=== PATIENT | male | born 1940 | race Caucasian/White ===

== ENCOUNTER 2017-11-26 18:58 | Emergency (ER) | payer MEDICARE ==
[~2017-11-26] VITALS: Ht 177.8 cm; Wt 29.5 kg
[~2017-11-26 18:58] MED LIST: ACETAMIN325 MG PO; ASPIRIN EC325 MG PO; BACTROBAN2 %; BENADRYL25 M2 PO; CARAFATE1 GM PO; CIPROFLOXACN500 MG PO; CLONIDINE0.3 MG PO; DOCUSATE SOD100 M1 PO; DOCUSATE SODIUM/SENN OR; ENOXAPARIN40 MG/0.1 SC; EX-LAX PO; FISH OIL1000 MG PO; FLEXERIL PO; FLEXERIL10 MG PO; FLUARIX QUADRIV1 INJ IM; FLULAVAL IM; GLIPIZIDE10 MG PO; GLIPIZIDE5 M1 PO; GLIPIZIDE5 M2 PO; GLUCOPHAGE500 MG PO; GLUCOS/CHOND1 CA1 PO; GLUCOSAMINE1000 M1 OR; GLUCOTROL5 MG PO; GLYCERIN RE; HUMULIN 70/30 SC; HUMULIN R1 M1 SC; LANTUS SOLOSTAR SC; LISINOPRIL10 MG PO; LORTAB 10-325 M1 TAB PO; LORTAB 5 PO; LOVENOX 4040 MG/0.4 SC; LOVENOX SC; MELOXICAM15 MG PO; METFORMIN500 M2 PO; METFORMIN500 MG PO; METOPROL TAR25 MG PO; MILK OF MAG30 ML/UDC PO; MIRALAX3350 N1 PO; MULTIVITAL PO; MULTIVITAM10 OR; MULTIVITAMIN OR; NAPROSYN500 MG PO; NEXIUM40 MG PO; NOVOLIN 70/30 SC; NUCYNTA50 MG OR; ONDANSETRON4 MG PO; OXYCONTIN10 MG PO; PERCOCET 5/325M1 TAB PO; PHENERGAN25 MG/TAB PO; PRAVASTATIN20 MG PO; PREVACID30 M2 PO; PRILOSEC OTC20 MG PO; PROMETHAZINE HC25 MG PO; ROCEPHIN 1 GM1 G1 IV; RYBIX ODT50 MG PO; SIMVASTATIN20 MG PO; SUCRALFATE1 GM PO; TERAZOSIN2 MG PO; TRAMADOL HCL50 MG PO; TUCKS RE; ULTRAM50 M1 PO; ULTRAM50 MG OR; VOLTAREN1 % TOP; ZESTRIL/PRI10 MG/TAB PO; ZOCOR20 MG PO; [UNRECOGNIZED DRUG - OTHER] OR
[2017-11-26 20:23] LABS: URINE BILIRUBIN - DIPSTICK NEGATIVE (NEGATIVE); URINE BLOOD DIPSTICK NEGATIVE (NEGATIVE); URINE COLOR YELLOW; URINE GLUCOSE - DIPSTICK NEGATIVE (NEGATIVE); URINE KETONE NEGATIVE (NEGATIVE); URINE LEUK ESTERASE NEGATIVE (NEGATIVE); URINE NITRITE - DIPSTICK NEGATIVE (Negative); URINE PROTEIN - DIPSTICK NEGATIVE (NEG-TRACE); URINE UROBILINOGEN - DIPSTICK 0.2 E.U./dL (0.2)
[2017-11-26 20:26] LABS: URINE CLARITY CLEAR
[2017-11-26 20:26] LABS: HEMATOCRIT 50.7 % (39.0-50.0); HEMOGLOBIN 17.8 g/dl (14.0-18.0); IMMATURE GRANULOCYTES 0.3 % (0.0-1.0); MEAN CELL VOLUME 88.9 fL CALC (80.0-100.0); MEAN CORPUSCULAR HGB 31.2 pG CALC (26.0-32.0); MEAN CORPUSCULAR HGB CONC 35.1 g/L CALC (32.0-36.0); NEUT# 3.17 thou/uL (1.82-7.42); RED BLOOD COUNT 5.7 mill/uL (4.70-6.10)
[2017-11-26 20:43] LABS: ALBUMIN 4.8 g/dL (3.2-5.0); BILIRUBIN, TOTAL 0.7 mg/dL (0.0-1.4); CALCIUM 10.3 mg/dL (8.4-10.2); CREATININE 1.8 mg/dL (0.7-1.3); POTASSIUM 4.9 mmol/l (3.5-5.1); TOTAL PROTEIN 7.6 g/dL (6.3-8.2)
[2017-11-27] MEDS ORDERED: FLEXERIL PO (01:45)
[2017-11-27] MEDS ORDERED: ULTRAM50 M1 PO (01:45)
[2017-11-27 02:44] VITALS: BP 148/79
== END 2017-11-27 02:44 | disposition home or self-care (01) ==
LOC: ED 18:58
PROVIDERS: Emergency Medicine
DX: N20.0 Calculus of kidney (principal); I10 Essential (primary) hypertension; I25.10 Atherosclerotic heart disease of native coronary artery without angina pectoris; E11.9 Type 2 diabetes mellitus without complications; Z87.442 Personal history of urinary calculi

== ENCOUNTER 2018-04-05 17:56 | Emergency (ER) | payer MEDICARE ==
[~2018-04-05] VITALS: Ht 177.8 cm; Wt 72.3 kg
[2018-04-05 18:25] LABS: HEMATOCRIT 49.7 % (39.0-50.0); HEMOGLOBIN 17.8 g/dl (14.0-18.0); IMMATURE GRANULOCYTES 0.3 % (0.0-1.0); MEAN CORPUSCULAR HGB 31.2 pG CALC (26.0-32.0); MEAN CORPUSCULAR HGB CONC 35.8 g/L CALC (32.0-36.0); NEUT# 3.53 thou/uL (1.82-7.42); RED BLOOD COUNT 5.71 mill/uL (4.70-6.10); RED CELL DISTRI WIDTH 12.7 % (11.5-15.5)
[2018-04-05 18:42] LABS: PROTHROMBIN TIME 10.6 SECONDS (9.0-12.5)
[2018-04-05 18:43] LABS: ALBUMIN 4.6 g/dL (3.2-5.0); ALKALINE PHOSPHATASE 65 u/l (38-126); ANION GAP 19 (6-22 (CALC)); BUN 26 mg/dL (8-23); BUN/CREATININE RATIO 21 (12-20 (CALC)); CARBON DIOXIDE 24 mmol/l (22-30); CHLORIDE 102 mmol/l (95-108); CREATININE 1.2 mg/dL (0.7-1.3); GFR 59 ML/MIN (>=60 (CALC)); GFR FOR AFR.AMER. > 60 ML/MIN (>=60 (CALC)); POTASSIUM 4.9 mmol/l (3.5-5.1); SGOT/AST 49 u/l (19-48); SGPT/ALT 48 u/l (11-66); SODIUM 140 mmol/l (137-146); TOTAL PROTEIN 8.3 g/dL (6.3-8.2)
[2018-04-05 21:34] LABS: URINE BILIRUBIN - DIPSTICK NEGATIVE (NEGATIVE); URINE BLOOD DIPSTICK NEGATIVE (NEGATIVE); URINE COLOR YELLOW; URINE GLUCOSE - DIPSTICK NEGATIVE (NEGATIVE); URINE KETONE NEGATIVE (NEGATIVE); URINE LEUK ESTERASE NEGATIVE (NEGATIVE); URINE NITRITE - DIPSTICK NEGATIVE (Negative); URINE PH 6.5 (4.5-8.0); URINE PROTEIN - DIPSTICK NEGATIVE (NEG-TRACE); URINE SPECIFIC GRAVITY <=1.005
[2018-04-05 21:36] LABS: URINE CLARITY CLEAR
[2018-04-05 22:20] VITALS: BP 118/71
== END 2018-04-05 22:20 | disposition home or self-care (01) ==
LOC: ED 17:56
PROVIDERS: Emergency Medicine
DX: I20.9 Angina pectoris, unspecified (principal); R55 Syncope and collapse; I10 Essential (primary) hypertension; E11.9 Type 2 diabetes mellitus without complications; Z79.4 Long term (current) use of insulin; Z86.73 Personal history of transient ischemic attack (TIA), and cerebral infarction without residual deficits; R53.1 Weakness; R06.02 Shortness of breath; R42 Dizziness and giddiness; R47.81 Slurred speech